=== PATIENT | male | born 1960 | race Hispanic/Latino ===

== ENCOUNTER 2024-05-12 14:11 | Emergency (ER) | payer OTHER ==
[2024-05-12] MEDS ORDERED: HYDROcodone/Acetaminophen 10/325 mg Tablet ONE (15:25)
== END 2024-05-12 15:30 | disposition home or self-care (01) ==
LOC: ERS 14:11
DX: M11.261 Other chondrocalcinosis, right knee (principal); M25.561 Pain in right knee; I10 Essential (primary) hypertension
CPT/HCPCS: 99283